=== PATIENT | female | born 1980 | race Two or more races ===

== ENCOUNTER → 2019-02-25 | Outpatient (CLI) | payer MEDICAID | LOC: FIMAGING 11:49 | PROVIDERS: ATTEND Physician Assistant | DX: R22.31 Localized swelling, mass and lump, right upper limb (principal) ==

== ENCOUNTER → 2019-02-25 | Outpatient (CLI) | payer MEDICAID | LOC: FIMAGING 12:19 | PROVIDERS: ATTEND Physician Assistant | DX: M54.2 Cervicalgia (principal); M25.78 Osteophyte, vertebrae ==